=== PATIENT | female | born 1940 | race African-American/Black ===

== ENCOUNTER 2018-08-11 13:22 | Inpatient (IN) | payer OTHER ==
[~2018-08-11] VITALS: Ht 167.6 cm; Wt 61.7 kg
--- NOTE | ~2018-08-11 | PATH ---
[facility] [place] [address] PATHOLOGY RPT PROCEDURE Name: KIRSTIE WOLFE Room #: 360-P DIS IN M.R.#: [id number] Admission: 08/11/18 Date of : 44 Discharge: 08/18/18 Report #: [id number] Path Case #: [id number] [facility] Accession Number: [id number] . 01 Material submitted: . PART A: BX OF DUODENUM PART B: BX OF ANTRUM . 01 Clinical history: . Epigastric pain, N/V Rule out sprue Rule out H. pylori . 02 Diagnosis: A. Duodenum "biopsy of duodenum": - No obvious diagnostic changes. - There is no evidence of acute cryptitis, granulomas, adenomatous change sprue like changes or malignancy. . B. Gastric biopsy "biopsy of antrum": - Mild chronic reactive gastropathy. - The immunoperoxidase stain for Helicobacter pylori is negative. (SHA:julisa; 08/16/2018) QMS/08/16/2018 . 02 Electronically signed: . Richard Caraballo MD, Pathologist NPI- [id number] . 01 Gross description: . A. The specimen is received in formalin, labeled "Aiden Kirstie, BX of duodenum" and consists of a fragment of soft arroyo tissue measuring 0.4 x 0.3 x 0.1 cm which is entirely submitted in A1. . B. The specimen is received in formalin, labeled "Kirstie Wolfe, BX of antrum" and consists of 2 fragments of soft pink-arroyo tissue measuring 0.4 x 0.3 x 0.1 cm and 0.3 x 0.2 x 0.1 cm. They are entirely submitted in B1. (SDY; 08/15/2018) SYU/SYU . 02 Pathologist provided ICD-10: K31.9, R10.13 . 02 CPT . 717008, 974521, K08492 Specimen Comment: A courtesy copy of this report has been sent to Specimen Comment: [phone], , . [place] [address] PATHOLOGY RPT PROCEDURE Name: KIRSTIE WOLFE Y Room #: 360-[facility] M.R.#: [id number] Admission: 08/11/18 Date of : 44 Discharge: 08/18/18 Report #: [id number] Path Case #: [id number] Specimen Comment: Report sent to ,DR PERKINS / DR ACOSTA Specimen Comment: A duplicate report has been generated due to demographic updates. Performed at: [address], [place] [id number] MD Edilberto Chaudhry MD Phone: [phone] Performed at: [address] [id number] MD Day Fuchs MD Phone: [phone]
--- NOTE | ~2018-08-11 | HC ---
[facility] [place] [address] CONSULTATION Name: SEMAJ CASTRO Room #: 360-P [facility] IN ..#: [id number] Admission: 08/11/18 Attend Phys: Akash Fry MD Discharge: Date of : 44 Report #: [id number] THIS REPORT FOR: //name// CC: Akash Lynn DATE OF SERVICE: 08/12/2018 CHIEF COMPLAINT: Bilateral heel ulcers and sacral ulceration. HISTORY OF PRESENT ILLNESS: This is a 78-year-old female patient with a history of hypertension and coronary artery disease, who was admitted from [facility] for altered mental status. She was noted to have bilateral heel ulcers and a sacral ulcer. I have been asked to see her in this regard. The patient says she is feeling somewhat better today. She has had slow progress with the ulcerations in both of these areas has been seen at multiple wound care facilities and institutions. PAST MEDICAL HISTORY: Positive for history of bilateral heel ulcerations, diabetes, muscle weakness, irritable bowel syndrome, hyperlipidemia, coronary artery disease, cataracts, tonsillectomy, and appendectomy. SOCIAL HISTORY: Negative for alcohol or tobacco use. FAMILY HISTORY: Reviewed with the patient and is negative for pertinent illnesses. MEDICATIONS: Include aspirin, Lipitor, Tums, Bentyl, Lexapro, Levaquin, Zestril, mag ox, Topral XL, Unicomplex, Voltaren, Duragesic, Lidoderm, Zofran, Flexeril, hydrocodone, Maalox, vitamin C. ALLERGIES: IODINE. REVIEW OF SYSTEMS: CONSTITUTIONAL: The patient denies fever, chills or weight loss. NEUROLOGICAL: The patient complains of generalized muscle weakness. Denies focal weakness, numbness, tingling. EYES: The patient denies visual changes, redness or drainage. ENT: The patient denies earache, nasal discharge, sore throat. CARDIOVASCULAR: The patient denies chest pain, palpitations, diaphoresis. PULMONARY: The patient denies cough, shortness of breath. GASTROINTESTINAL: The patient denies nausea, diarrhea or abdominal pain. ORTHOPEDIC: The patient is aware of the ulcerations on both heels as well as her sacral region. Other systems in a 14-point review of systems are negative. [address] [address] CONSULTATION Name: SEMAJ CASTRO Room #: [address] [place] [address]#: [id number] Admission: 08/11/18 Attend Phys: Akash Fry MD Discharge: Date of : 44 Report #: [id number] PHYSICAL EXAMINATION: VITAL SIGNS: At this time include temperature 36.1, pulse 78, respiration of 20, blood pressure 129/70. GENERAL: This is a chronically ill-appearing female patient, who appears to be in minimal distress. HEENT: Head normocephalic. Nose and throat are clear. NECK: Supple. LUNGS: Clear. HEART: Regular rate. ABDOMEN: Soft. Bowel sounds present. EXTREMITIES: Examination of the heels demonstrates pressure ulcerations to both heels stage 3, greater on the right than on the left. They are clean with good granulation tissue and evidence of epithelization. Sacral region demonstrates an unstageable pressure ulcerations to the sacral gluteal region. They appear superficial. There is moderate fibrin and slough present. No evidence of infection is noted. LABORATORY DATA: Includes white blood cell count 8.9, hemoglobin 11.5, hematocrit 35.1, INR 1.2, sodium 144, potassium 3.3, chloride 104, CO2 32, BUN 4, creatinine 0.5, glucose 117. CLINICAL IMPRESSION: 1. Stage 4 pressure ulcers, bilateral heels. 2. Unstageable pressure to the sacral gluteal region. 3. Diabetes mellitus. 4. Muscle weakness. 5. Hyperlipidemia. 6. Coronary artery disease. RECOMMENDATIONS: At this point in time, the patient will be placed in low air loss mattress. She will need every 2 hour turning position. We will recommend PRAFO boots for pressure prophylaxis of both heels. We will recommend bordered foam to both heels, 1/2 strength Dakin's moist gauze b.i.d. to the sacral region in hopes of cleaning that up. She will need every 2 hour turning and repositioning, aggressive nutritional support to maximize wound healing and glycemic control. I appreciate being asked to see her in consultation. <ELECTRONICALLY SIGNED> By: Mekhi Pittman MD 08/15/18 0939 [id number] [id number] Mekhi Pittman MD /nt
--- NOTE | ~2018-08-11 | EKG ---
[address] [place] [address] ELECTROCARDIOGRAM REPORT Name: GLORIASEMAJ Y Room #: 360-[facility] IN .R.#: [id number] Admission: 08/11/18 Attend Phys: Akash Fry MD Discharge: Date of : 44 Report #: [id number] THIS REPORT FOR: //name// [facility] ED Test Date: 2018-08-11 Test Time: 13:40:29 Pat Name: SEMAJ CASTRO Department: Room: [facility] Gender: F Cost Accountant: RANI : 1940 Requested By: Gracia Juárez Order Number: [id number] MD: Jarod Javier Measurements Intervals [place] Rate: 96 P: 73 RI: 130 QRS: 28 QRSD: 110 T: 74 QT: 381 QTc: 482 Interpretive Statements Sinus rhythm No significant abnormality No previous ECG available for comparison Electronically Signed On 08-12-2018 8:23:55 CDT by Jarod Javier [email or web address] <ELECTRONICALLY SIGNED> By: Jarod Javier MD, [facility] 08/12/18 0823 1340 1340 Jarod Javier MD, FACC /EPI
[~2018-08-11 13:22] MED LIST: AMOXICILLIN 50500 MG PO; CLEOCIN HCL300 MG PO; CORTISPORIN OTI10 ML OTIC; FLEXERIL PO; GLUCOPHAGE XR500 MG PO; GLUCOTROL XL10 MG; IBUPROFEN 600600 M1 PO; NAPROSYN500 MG; NAPROSYN500 MG PO; NORCO 5-325 TA1 EACH PO; ZOFRAN ODT4 MG PO
[2018-08-11 13:23] VITALS: BP 73/33
[2018-08-11 13:55] LABS: ABSOLUTE NEUTROPHILS 6.8 thou/uL (1.4-8.2); BASOPHILS 0.5 % (0.0-2.0); EOSINOPHILS 0.1 % (0.0-3.0); HEMATOCRIT 35.8 % (37.0-47.0); HEMOGLOBIN 11.5 gm/dL (12.0-15.0); LYMPHOCYTES 14.8 % (24.0-44.0); MCHC 32.2 g/dL (28.0-37.0); MCV 83.8 fL (80.0-100.0); MONOCYTES 7.8 % (1.0-8.0); PLATELET COUNT 301 thou/uL (150-400); POLYS 76.8 % (36.0-66.0); RBC 4.27 mil/uL (4.20-5.00); RDW 19.2 % (10.5-14.5); WBC 8.9 thou/uL (4.0-11.0)
[2018-08-11 14:04] LABS: INR 1.2; PROTIME 11.8 Seconds (9.3-11.4)
[2018-08-11 14:08] LABS: ANION GAP 11 mmol/L (7-16); BUN 5 mg/dL (7-18); CALCIUM 9.2 mg/dL (8.5-10.1); CHLORIDE 96 mmol/L (98-107); CO2 34 mmol/L (21-32); CREATININE 0.7 mg/dL (0.6-1.0); GLUCOSE 147 mg/dL (74-106); SODIUM 141 mmol/L (136-145)
[2018-08-11 14:11] LABS: POTASSIUM 2.4 mmol/L (3.5-5.1)
[2018-08-11 14:17] LABS: ALBUMIN 2.1 g/dL (3.4-5.0); SGOT 20 U/L (15-37); SGPT 15 U/L (30-65); TOTAL BILIRUBIN 0.4 mg/dL (<0.1-1.0); TOTAL PROTEIN 6.7 g/dL (6.4-8.2); TROPONIN-I <0.06 ng/mL (<0.06)
[2018-08-11 14:20] LABS: URINE BLOOD TRACE (Negative); URINE CLARITY CLOUDY; URINE COLOR YELLOW; URINE GLUCOSE-RANDOM* NEGATIVE (Negative); URINE KETONES 1+ (Negative); URINE NITRITE-REFLEX NEGATIVE (Negative); URINE PROTEIN (DIPSTICK) TRACE (Negative); URINE UROBILINOGEN 0.2 E.U./dl (0.2-1.0)
[2018-08-11 14:21] LABS: URINE LEUKOCYTES-REFLEX 2+ (Negative)
[2018-08-11 14:27] LABS: ICTOTEST (BILI CONFIRMATORY) Negative (Negative); URINE BILIRUBIN NEGATIVE (Negative)
[2018-08-11 14:28] LABS: CASTS None Seen /LPF (None Seen); SQUAMOUS 0-3 Few /LPF (0-3); URINE RBC 3-10 Few /HPF (0-2); YEAST-REFLEX Present (None Seen)
[2018-08-11 14:29] LABS: CRYSTALS None Seen /LPF (None Seen)
[2018-08-11 17:35] VITALS: BP 135/71
[2018-08-11 18:24] VITALS: BP 151/74
[2018-08-11] MEDS ORDERED: ASPIR 8181 MG PO (19:11)
[2018-08-11] MEDS ORDERED: ATORVASTATIN CA40 MG PO (19:12)
[2018-08-11] MEDS ORDERED: TUMS PO (19:13)
[2018-08-11] MEDS ORDERED: BENTYL 10 MG CA10 M1 PO (19:14)
[2018-08-11] MEDS ORDERED: LEXAPRO 10 MG T10 M1 PO (19:15)
[2018-08-11] MEDS ORDERED: LEVAQUIN 500 M500 M2 PO (19:16)
[2018-08-11] MEDS ORDERED: LISINOPRIL10 MG PO (19:16)
[2018-08-11] MEDS ORDERED: MAGOX 400400 MG PO (19:17)
[2018-08-11] MEDS ORDERED: UNICOMPLEX M TA1 TA1 PO (19:19)
[2018-08-11] MEDS ORDERED: TOPROL XL25 MG PO (19:19)
[2018-08-11] MEDS ORDERED: VITAMIN D250000 UNIT PO (19:21)
[2018-08-11] MEDS ORDERED: VOLTAREN GEL 1100 G1 TOP (19:23)
[2018-08-11] MEDS ORDERED: DURAGESIC1 EACH TOP (19:25)
[2018-08-11] MEDS ORDERED: LIDODERM1 EACH TOP (19:26)
[2018-08-11] MEDS ORDERED: ONDANSETRON HCL4 M2 PO (19:28)
[2018-08-11] MEDS ORDERED: CYCLOBENZAPRINE5 MG PO (19:29)
[2018-08-11 19:30] VITALS: BP 171/83
[2018-08-11] MEDS ORDERED: HYDROCODON-ACE1 EAC7 PO (19:30)
[2018-08-11] MEDS ORDERED: MAALOX MAXIMUM355 ML PO (19:31)
[2018-08-11] MEDS ORDERED: VITAMINC500 PO (19:32)
[2018-08-12 04:40] VITALS: BP 146/77
[2018-08-12 07:25] VITALS: BP 137/62
[2018-08-12 08:09] LABS: CALCIUM 8.2 mg/dL (8.5-10.1); CREATININE 0.5 mg/dL (0.6-1.0); MAGNESIUM 1.4 mg/dL (1.8-2.4); POTASSIUM 3.3 mmol/L (3.5-5.1)
[2018-08-12 12:26] VITALS: BP 146/77
[2018-08-12 17:34] VITALS: BP 129/70
[2018-08-12 19:12] VITALS: BP 159/70
[2018-08-13 02:45] VITALS: BP 153/81
[2018-08-13 06:36] LABS: HEMATOCRIT 35.1 % (37.0-47.0); HEMOGLOBIN 11.4 gm/dL (12.0-15.0); MCH 27.4 pg (26.0-34.0); MCHC 32.6 g/dL (28.0-37.0); MCV 84.2 fL (80.0-100.0); RBC 4.17 mil/uL (4.20-5.00); RDW 19.3 % (10.5-14.5); WBC 7.3 thou/uL (4.0-11.0)
[2018-08-13 06:55] LABS: CALCIUM 8.5 mg/dL (8.5-10.1); CREATININE 0.4 mg/dL (0.6-1.0); POTASSIUM 3.1 mmol/L (3.5-5.1)
[2018-08-13 07:42] VITALS: BP 114/59
[2018-08-13 12:04] VITALS: BP 141/77
[2018-08-13 16:24] VITALS: BP 148/100
[2018-08-13 19:27] VITALS: BP 150/80
[2018-08-14 03:26] VITALS: BP 139/72
[2018-08-14 06:41] LABS: CALCIUM 8.2 mg/dL (8.5-10.1); CREATININE 0.3 mg/dL (0.6-1.0); MAGNESIUM 1.4 mg/dL (1.8-2.4)
[2018-08-14 12:00] VITALS: BP 145/79
[2018-08-14 15:24] VITALS: BP 150/88
[2018-08-15 03:23] VITALS: BP 147/82
[2018-08-15 04:23] LABS: CREATININE 0.3 mg/dL (0.6-1.0)
[2018-08-15 04:28] LABS: POTASSIUM 2.9 mmol/L (3.5-5.1)
[2018-08-15 07:18] VITALS: BP 139/82
[2018-08-15 12:23] VITALS: BP 150/82
[2018-08-15 16:20] VITALS: BP 147/77
[2018-08-15 20:02] VITALS: BP 142/60
[2018-08-16 04:18] VITALS: BP 145/67
[2018-08-16 06:07] LABS: CALCIUM 8.5 mg/dL (8.5-10.1); CREATININE 0.3 mg/dL (0.6-1.0); MAGNESIUM 1.5 mg/dL (1.8-2.4)
[2018-08-16 08:23] VITALS: BP 127/70
[2018-08-16] MEDS ORDERED: PANTOPRAZOLE SO40 M1 PO (09:05)
[2018-08-16] MEDS ORDERED: FLUCONAZOLE 10100 MG PO (09:05)
[2018-08-16 11:58] VITALS: BP 135/68
[2018-08-16 13:55] LABS: URINE BILIRUBIN NEGATIVE (Negative); URINE BLOOD NEGATIVE (Negative); URINE CLARITY CLOUDY; URINE COLOR YELLOW; URINE GLUCOSE-RANDOM* NEGATIVE (Negative); URINE KETONES TRACE (Negative); URINE LEUKOCYTES 1+ (Negative); URINE NITRITE NEGATIVE (Negative); URINE PROTEIN (DIPSTICK) NEGATIVE (Negative); URINE SPECIFIC GRAVITY 1.015 (1.005-1.035); URINE UROBILINOGEN 0.2 E.U./dl (0.2-1.0)
[2018-08-16 14:11] LABS: CALCIUM OXALATE 0-3 Few /LPF (None Seen)
[2018-08-16 14:19] LABS: CASTS None Seen /LPF (None Seen); SQUAMOUS None Seen /LPF (0-3); URINE RBC 0-2 Rare /HPF (0-2); YEAST Present (None Seen)
[2018-08-16 17:01] VITALS: BP 152/79
[2018-08-16 21:09] VITALS: BP 138/87
[2018-08-17 05:12] VITALS: BP 134/64
[2018-08-17 09:04] VITALS: BP 118/67
[2018-08-17 11:55] VITALS: BP 134/65
[2018-08-17 19:20] VITALS: BP 143/81
[2018-08-17 20:22] VITALS: BP 134/90
[2018-08-18 08:00] VITALS: BP 144/88
[2018-08-18 11:21] VITALS: BP 83/49
[2018-08-18 12:05] VITALS: BP 146/82
[2018-08-18 12:30] VITALS: BP 130/86
[2018-08-18 15:27] VITALS: BP 141/74
== END 2018-08-18 19:16 | DRG 592 ==
LOC: ER 13:22 → EROBS 17:14 → 3W 17:14
PROVIDERS: Hospitalist; Nurse Practitioner Acute Care; Nurse Practitioner Family; Physician Assistant
PROC: 0DB98ZX Excision of Duodenum, Via Natural or Artificial Opening Endoscopic, Diagnostic (ICD-10-PCS; principal; 2018-08-15)
PROC: 0DB68ZX Excision of Stomach, Via Natural or Artificial Opening Endoscopic, Diagnostic (ICD-10-PCS; principal; 2018-08-15)
DX: L89.624 Pressure ulcer of left heel, stage 4 (principal); E43 Unspecified severe protein-calorie malnutrition; G93.40 Encephalopathy, unspecified; N39.0 Urinary tract infection, site not specified; L89.614 Pressure ulcer of right heel, stage 4; E11.9 Type 2 diabetes mellitus without complications; E87.6 Hypokalemia; K58.9 Irritable bowel syndrome, unspecified; I25.10 Atherosclerotic heart disease of native coronary artery without angina pectoris; L89.150 Pressure ulcer of sacral region, unstageable; E78.5 Hyperlipidemia, unspecified; I10 Essential (primary) hypertension; I95.9 Hypotension, unspecified; R13.10 Dysphagia, unspecified; E83.42 Hypomagnesemia; F32.9 Major depressive disorder, single episode, unspecified; D64.9 Anemia, unspecified; K22.2 Esophageal obstruction; K44.9 Diaphragmatic hernia without obstruction or gangrene; K29.60 Other gastritis without bleeding; R12 Heartburn; Z60.2 Problems related to living alone; I69.911 Memory deficit following unspecified cerebrovascular disease; Z91.041 Radiographic dye allergy status; Z98.49 Cataract extraction status, unspecified eye; Z90.49 Acquired absence of other specified parts of digestive tract; Z79.899 Other long term (current) drug therapy; Z68.22 Body mass index [BMI] 22.0-22.9, adult; Z79.82 Long term (current) use of aspirin; Z91.14 Patient's other noncompliance with medication regimen
CPT/HCPCS: 10879; 62110; 62900; 70005